=== PATIENT | female | born 1950 | race Caucasian/White ===

== ENCOUNTER → 2021-01-06 | Outpatient (CLI) | payer MEDICARE ==
[2021-01-06 19:44] LABS: Basophils # (A) 0.02 X 10*3/uL (0.00-0.10); Basophils % (A) 0.2 %; Eosinophils # (A) 0.14 X 10*3/uL (0.04-0.35); Eosinophils % (A) 1.6 %; HCT 35.3 % (37.2-46.3); HGB 10.8 g/dL (12.0-15.0); Lymphocytes # (A) 1.84 X 10*3/uL (0.90-5.00); Lymphocytes % (A) 20.4 %; MCHC 30.6 g/dL (32.0-37.0); MCV 94.6 fL (80.0-97.0); Mean Platelet Volume 9.9 fL (9.5-12.2); Monocytes # (A) 0.64 X 10*3/uL (0.20-1.00); Monocytes % (A) 7.1 %; Neutrophils # (A) 6.34 X 10*3/uL (1.80-7.70); Neutrophils % (A) 70.4 %; Platelet Count 384 X 10*3/uL (140-440); RBC 3.73 X 10*6/uL (4.10-5.20); RDW 13.6 % (11.5-14.5); WBC 9.01 X 10*3/uL (4.50-10.00)
[2021-01-06 21:52] LABS: Erythrocyte Sedimentation Rate 106 mm/Hr (0-30)
[2021-01-07 02:11] LABS: Uric Acid 6.3 mg/dL (2.9-7.7)
[2021-01-07 14:04] LABS: HLA B27 NEGATIVE
== END | disposition home or self-care (01) ==
LOC: LABWHC1 11:33
PROVIDERS: ATTEND Orthopaedic Surgery
DX: M25.50 Pain in unspecified joint (principal)
CPT/HCPCS: 36415; 84550; 85025; 85652; 86038; 86039; 86140; 86431; 86618; 86812

== ENCOUNTER → 2021-11-24 | Outpatient (CLI) | payer MEDICARE ==
--- NOTE | 2021-11-25 11:42 | MM ---
Reason for Exam: Screening (asymptomatic). Last mammogram was performed 1 year(s) and 3 month(s) ago. Patient History: Menarche at age 13. First Full-Term at age 19. Left ovary removed at age 46. Right ovary removed at age 46. Hysterectomy at age 46. Postmenopausal. Estrogen, starting at age 46 for 8 years. Sister had breast cancer at or over age 50. Risk Values: Rajni 5 year model risk: 3.1%. NCI Lifetime model risk: 7.9%. Prior Study Comparison: 07/19/2017 Bilateral MG screening mammo w CAD - 2, [facility] [place]. 11/20/2018 Bilateral MG screening mammo w CAD - 2, [facility] [place]. 09/08/2020 Bilateral MG screening mammo w CAD - 2, [facility] [place]. Tissue Density: There are scattered fibroglandular densities. Findings: Analyzed By CAD. Benign-appearing bilateral axillary lymph nodes are redemonstrated. There is no suspicious group of microcalcifications or new suspicious mass in either breast. Overall Assessment: Negative, BI-RAD 1 Management: Screening Mammogram of both breasts in 1 year. A clinical breast exam by your physician is recommended on an annual basis and results should be correlated with mammographic findings. Electronically signed and approved by: Danny Butler M.D.
== END | disposition home or self-care (01) ==
LOC: RADMAMWWP 11:36
PROVIDERS: ATTEND Family Medicine
DX: Z12.31 Encounter for screening mammogram for malignant neoplasm of breast (principal)
CPT/HCPCS: 77063; 77067

== ENCOUNTER → 2022-01-12 | Outpatient (CLI) | payer MEDICARE ==
--- NOTE | 2022-01-12 14:43 | CT ---
EXAMINATION TYPE: CT abdomen pelvis w con DATE OF EXAM: 01/12/2022 COMPARISON: None INDICATION: Abd pain DLP: 1132 mGycm, Automated exposure control for dose reduction was used. CONTRAST: 100 mL of Isovue 300. Study performed with Oral Contrast TECHNIQUE: Axial images were obtained from above the diaphragm to the pubic rami in the axial plane a t 5 mm thick sections. Reconstructed images are reviewed on the computer in the coronal plane. FINDINGS: Limited CT sections are obtained the lung bases. The lung bases are clear. CT ABDOMEN: Liver: There is a cyst in the left upper lobe liver. Small cyst may be near the cortex of the posteri or right lobe liver, series 3 image 18. Spleen: Normal. A splenule is within the splenic hilum. Pancreas: Normal Adrenal glands: The adrenal glands are normal. Gallbladder: Normal Kidneys: No masses are evident. No hydronephrosis is present. Exophytic cyst on the posterior later al inferior right kidney measuring 1.6 cm and 9 Hounsfield units. Small cortical renal cysts on the inferior lateral left kidney measuring 1.4 cm. There are couple of large cyst within the mid to upper pole left kidney measuring 3.7 cm and 0 Hounsfield units and 4.8 cm 6 Hounsfield units. Delayed eyad ges were obtained through the kidneys, which remain unremarkable. Aorta: Vascular calcification is within the aorta. Inferior vena cava: Normal. CT PELVIS: Loops of bowel within the abdomen and pelvis are normal. There are loops of bowel which are incom pletely distended or lack oral contrast limiting their evaluation. Appendix: Normal as visualized. Urinary bladder: Normal. Genitourinary structures: Uterus and ovaries are not identified. Osseous structures: No suspicious lytic or sclerotic lesions. IMPRESSIONS: 1. Hepatic and renal cysts
== END | disposition home or self-care (01) ==
LOC: RADCTMAIN 11:25
PROVIDERS: ATTEND Family Medicine
DX: R10.84 Generalized abdominal pain (principal); R10.2 Pelvic and perineal pain; R07.9 Chest pain, unspecified
CPT/HCPCS: 74177; Q9967 ×2

== ENCOUNTER 2022-01-28 03:52 | Emergency (ER) | payer MEDICARE ==
[2022-01-28 04:01] VITALS: RESP 16
[2022-01-28] MEDS ORDERED: ACETAMINOPHEN TAB 325 MG TAB PO STA (04:27)
--- NOTE | 2022-01-28 05:23 | XR ---
EXAMINATION TYPE: XR chest 2V DATE OF EXAM: 01/28/2022 COMPARISON: NONE HISTORY: Fever TECHNIQUE: 2 views FINDINGS: Heart and mediastinum are normal. Lungs are clear. Diaphragm is normal. Bony thorax appears normal. IMPRESSION: Normal chest.
[2022-01-28 05:54] LABS: Appearance,Urine Clear (Clear); Bacteria,Urine Rare /hpf; Bilirubin,Urine Negative (Negative); Blood,Urine Small (Negative); Color,Urine Light Yellow; Glucose,Urine (UA) Negative (Negative); Ketones,Urine Negative (Negative); Leukocyte Esterase,Urine Moderate (Negative); Mucus,Urine Rare /hpf; Nitrite,Urine Negative (Negative); PH, Urine 5.5 (5.0-8.0); Protein,Urine Negative (Negative); RBC,Urine 5 /hpf (0-5); Specific Gravity,Urine 1.016 (1.001-1.035); Squamous Epithelial Cell,Urine 1 /hpf (0-4); Urobilinogen,Urine <2.0 mg/dL (<2.0); WBC,Urine 7 /hpf (0-5)
--- NOTE | 2022-01-28 05:57 | ED ---
Fever HPI - General Chief Complaint: Fever Stated Complaint: Fever Time Seen by Provider: 01/28/22 04:27 Source: patient, family Mode of arrival: wheelchair Limitations: no limitations - History of Present Illness MD Complaint: fever, malaise -: hour(s) Temperature Source: subjective Associated Symptoms: chills, myalgias - Related Data Allergies Allergy/AdvReac Type Severity Reaction Status Date / Time No Known Allergies Allergy Verified 01/28/22 03:58 Review of Systems ROS Statement: Those systems with pertinent positive or pertinent negative responses have been documented in the HPI. ROS Other: All systems not noted in ROS Statement are negative. Constitutional: Reports: fever, chills. Denies: weakness ENT: Denies: throat pain, congestion Respiratory: Denies: cough, dyspnea Cardiovascular: Denies: chest pain Gastrointestinal: Denies: abdominal pain, vomiting, diarrhea Genitourinary: Denies: dysuria, frequency, hematuria Musculoskeletal: Reports: myalgia Neurological: Denies: headache, weakness Past Medical History Past Medical History: Hyperlipidemia, Hypertension History of Any Multi-Drug Resistant Organisms: None Reported Past Surgical History: Hysterectomy Past Psychological History: No Psychological Hx Reported Smoking Status: Former smoker Past Alcohol Use History: None Reported Past Drug Use History: None Reported General Exam Limitations: no limitations General appearance: alert, in no apparent distress Head exam: Present: atraumatic, normocephalic Eye exam: Present: normal appearance. Absent: scleral icterus, conjunctival injection ENT exam: Present: normal oropharynx Neck exam: Present: normal inspection, full ROM. Absent: meningismus Respiratory exam: Present: normal lung sounds bilaterally. Absent: respiratory distress, wheezes, rales, rhonchi, stridor Cardiovascular Exam: Present: regular rate, normal rhythm, normal heart sounds. Absent: systolic murmur, diastolic murmur, rubs, gallop GI/Abdominal exam: Present: soft. Absent: distended, tenderness, guarding, rebound, rigid, mass Extremities exam: Present: normal inspection, normal capillary refill. Absent: pedal edema Neurological exam: Present: alert Skin exam: Present: warm, dry, intact, normal color. Absent: rash Course Vital Signs 01/28/22 01/28/22 03:59 06:17 Temperature 99.8 F H 97.8 F Pulse Rate 102 H 82 Respiratory 16 16 Rate Blood Pressure 136/63 134/82 O2 Sat by Pulse 98 99 Oximetry Medical Decision Making - Lab Data Lab Results 01/28/22 01/28/22 Range/Units 04:55 04:55 Urine Color Light Yellow Urine Appearance Clear (Clear) Urine pH 5.5 (5.0-8.0) Ur Specific [place] 1.016 (1.001-1.035) Urine Protein Negative (Negative) Urine Glucose (UA) Negative (Negative) Urine Ketones Negative (Negative) Urine Blood Small H (Negative) Urine Nitrite Negative (Negative) Urine Bilirubin Negative (Negative) Urine Urobilinogen <2.0 (<2.0) mg/dL Ur Leukocyte Esterase Moderate H (Negative) Urine RBC 5 (0-5) /hpf Urine WBC 7 H (0-5) /hpf Ur Squamous Epith Cells 1 (0-4) /hpf Urine Bacteria Rare H (None) /hpf Urine Mucus Rare H (None) /hpf Coronavirus (PCR) Detected A (Not Detectd) Disposition Clinical Impression: COVID-19 Disposition: HOME SELF-CARE Condition: Good Instructions (If sedation given, give patient instructions): COVID-19 (Coronavirus Disease 2019) (ED) Is patient prescribed a controlled substance at d/c from ED?: No Referrals: Porsha Vidales DO [Primary Care Provider] - 1-2 days
[2022-01-28 06:18] VITALS: BP 134/82; PULSE 82; TEMP 97.8
== END 2022-01-28 06:17 | disposition home or self-care (01) ==
LOC: EC 03:52
DX: U07.1 COVID-19 (principal); I10 Essential (primary) hypertension; Z87.891 Personal history of nicotine dependence
CPT/HCPCS: 71046; 81001; 87635; 99283

== ENCOUNTER → 2022-10-21 | Outpatient (CLI) | payer MEDICARE | END | disposition home or self-care (01) | LOC: LABWHC1 14:55 | PROVIDERS: ATTEND Internal Medicine Rheumatology | DX: R77.8 Other specified abnormalities of plasma proteins (principal) | CPT/HCPCS: 36415; 86334 ==

== ENCOUNTER → 2022-12-05 | Outpatient (CLI) | payer MEDICARE ==
--- NOTE | 2022-12-06 08:12 | MM ---
Reason for Exam: Screening (asymptomatic). Last screening mammogram was performed 12 month(s) ago. Patient History: Menarche at age 13. First Full-Term at age 19. Left ovary removed at age 46. Right ovary removed at age 46. Hysterectomy at age 46. Postmenopausal. Estrogen, starting at age 46 for 8 years. Sister had breast cancer, age 50. Risk Values: Rajni 5 year model risk: 3.1%. NCI Lifetime model risk: 7.5%. Prior Study Comparison: 11/20/2018 Bilateral MG screening mammo w CAD - 2, [facility] [place]. 09/08/2020 Bilateral MG screening mammo w CAD - 2, [facility] [place]. 11/24/2021 Bilateral MG 3D screening mammo w/cad, [facility]. Tissue Density: There are scattered fibroglandular densities. Findings: Analyzed By CAD. There is occasional scattered tiny round calcification throughout the bilateral breasts redemonstrated. Benign-appearing bilateral axillary lymph nodes are redemonstrated. There is no suspicious new group of microcalcifications or new suspicious mass in either breast. Overall Assessment: Benign, BI-RAD 2 Management: Screening Mammogram of both breasts in 1 year. . Patient should continue monthly self-breast exams. A clinical breast exam by your physician is recommended on an annual basis. This exam should not preclude additional follow-up of suspicious palpable abnormalities. Note on Rajni scores and lifetime risk: 1. A Rajni score greater than 3% is considered moderate risk. If this is the case, consider specialist referral to assess eligibility for a risk reducing agent. 2. If overall lifetime risk for the development of breast cancer is 20% or higher, the patient may qualify for future screening with alternating mammogram and breast MRI. Electronically signed and approved by: Danny Butler M.D.
== END | disposition home or self-care (01) ==
LOC: RADMAMWWP 13:14
PROVIDERS: ATTEND Family Medicine
DX: Z12.31 Encounter for screening mammogram for malignant neoplasm of breast (principal); Z78.0 Asymptomatic menopausal state; Z80.3 Family history of malignant neoplasm of breast
CPT/HCPCS: 77063; 77067

== ENCOUNTER → 2023-12-20 | Outpatient (CLI) | payer MEDICARE ==
--- NOTE | 2023-12-28 21:31 | MM ---
Reason for Exam: Screening (asymptomatic). Last mammogram was performed 1 year(s) and 1 month(s) ago. Patient History: Menarche at age 13. First Full-Term at age 19. Left ovary removed at age 46. Right ovary removed at age 46. Hysterectomy at age 46. Postmenopausal. Estrogen, starting at age 46 for 8 years. Sister had breast cancer, age 50. Risk Values: Rajni 5 year model risk: 3.1%. NCI Lifetime model risk: 7.0%. Prior Study Comparison: 09/08/2020 Bilateral MG screening mammo w CAD - 2, [facility] [place]. 11/24/2021 Bilateral MG 3D screening mammo w/cad, [facility]. 12/05/2022 Bilateral MG 3D screening mammo w/cad, [facility]. Tissue Density: There are scattered areas of fibroglandular density. Findings: Analyzed By CAD. Unchanged asymmetric density anterior right breast. There is no suspicious group of microcalcifications or new suspicious mass in either breast. Overall Assessment: Benign, BI-RAD 2 Management: Screening Mammogram of both breasts in 1 year. See note below in regards to the patient's increased 5 year Rajni score. Patient should continue monthly self-breast exams. A clinical breast exam by your physician is recommended on an annual basis. This exam should not preclude additional follow-up of suspicious palpable abnormalities. Note on Rajni scores and lifetime risk: 1. A Rajni score greater than 3% is considered moderate risk. If this is the case, consider specialist referral to assess eligibility for a risk reducing agent. 2. If overall lifetime risk for the development of breast cancer is 20% or higher, the patient may qualify for future screening with alternating mammogram and breast MRI. Electronically signed and approved by: Pamela Frye M.D. Radiologist
== END | disposition home or self-care (01) ==
LOC: RADMAMWWP 12:38
PROVIDERS: ATTEND Family Medicine
DX: Z12.31 Encounter for screening mammogram for malignant neoplasm of breast (principal); Z78.0 Asymptomatic menopausal state; Z80.3 Family history of malignant neoplasm of breast; R92.323 Mammographic fibroglandular density, bilateral breasts
CPT/HCPCS: 77063; 77067

== ENCOUNTER 2024-07-03 07:06 | Day surgery (SDC) | payer MEDICARE ==
[2024-07-01 12:55] VITALS: BMI 30.1
[~2024-07-03 07:06] MED LIST: LIDOCAINE 1% (10MG/ML) FOR IV START INTRADERMA PRN
[2024-07-03] MEDS: LACTATED RINGERS 500 ML IV ONE (07:40)
[2024-07-03 07:43] VITALS: RESP 16; TEMP 97.4
[2024-07-03] MEDS: LACTATED RINGERS 1,000 ML IV SCH (07:43)
[2024-07-03] MEDS ORDERED: PROPOFOL 10 MG/ML 20 ML VIAL IV ONE (07:49)
[2024-07-03] MEDS ORDERED: LIDOCAINE 2% (PF) 20 MG/ML 5 ML VIAL ONE (07:49)
--- NOTE | 2024-07-03 08:05 | P.PCN ---
Date of Procedure: 07/03/24 Procedure(s) Performed: BRIEF HISTORY: Patient is a 73-year-old pleasant white female scheduled for an elective colonoscopy as a part of evaluation of chronic diarrhea for the last few months duration. She has 5-6 loose watery bowel movements daily associated fecal incontinence. PROCEDURE PERFORMED: Colonoscopy with snare polypectomy and random biopsies. PREOPERATIVE DIAGNOSIS: Chronic diarrhea. IV sedation per Anesthesia. PROCEDURE: After informed consent was obtained, the patient, was brought into the endoscopy unit. IV sedation was administered by Anesthesia under continuous monitoring. Digital rectal examination was normal. Initially the Olympus CF-160 flexible video colonoscope was then inserted in the rectum, gradually advanced into the cecum without any difficulty. Careful examination was performed as the scope was gradually being withdrawn. Ileocecal valve and the appendiceal orifice were visualized and appeared normal. Prep was excellent. Mucosa of the cecum, ascending colon, transverse colon, descending colon, sigmoid colon, and rectum appeared normal. Rectum there was a 5 mm polyp that was removed by cold snare polypectomy. Scattered sigmoid diverticulosis. Biopsies were done from the ascending and descending colon rule out microscopic/collagenous colitis. Retrof lexion was performed in the rectum and no lesions were seen. The patient tolerated the procedure well. IMPRESSION: 5 mm millimeter proximal rectal polyp status post cold snare polypectomy. Scattered sigmoid diverticulosis RECOMMENDATIONS: Findings of this examination were discussed with the patient as well as her family. She was advised to follow-up with the biopsy results. She will be seen in the office in 2 weeks. If the biopsy reveals adenoma she can have repeat colonoscopy in 5 years..
[2024-07-03 08:34] VITALS: BP 128/62; PULSE 73
== END 2024-07-03 09:09 | disposition home or self-care (01) ==
LOC: ORWHC2ENDO 07:06
PROVIDERS: ATTEND Internal Medicine Gastroenterology
DX: K52.9 Noninfective gastroenteritis and colitis, unspecified (principal); K63.5 Polyp of colon; K62.1 Rectal polyp; R15.9 Full incontinence of feces; K57.30 Diverticulosis of large intestine without perforation or abscess without bleeding; I10 Essential (primary) hypertension; E78.5 Hyperlipidemia, unspecified; K21.9 Gastro-esophageal reflux disease without esophagitis; D64.9 Anemia, unspecified; Z86.73 Personal history of transient ischemic attack (TIA), and cerebral infarction without residual deficits; Z79.899 Other long term (current) drug therapy
CPT/HCPCS: 88305; 45380; 45385; J2704; J2003